=== PATIENT | male | born 1995 | race Caucasian/White ===

== ENCOUNTER 2018-02-15 19:32 | Emergency (ER) | payer OTHER ==
[~2018-02-15] VITALS: Ht 198.1 cm; Wt 132.9 kg
[2018-02-15 19:47] VITALS: BP 196/139; Ht 198.1 cm; Wt 132.9 kg
== END 2018-02-15 20:24 | disposition left against medical advice (07) ==
LOC: ED 19:32
DX: Z53.21 Procedure and treatment not carried out due to patient leaving prior to being seen by health care provider (principal)

== ENCOUNTER 2018-02-18 06:27 | Emergency (ER) | payer OTHER ==
[~2018-02-18] VITALS: Ht 198.1 cm; Wt 137.7 kg
[2018-02-18 06:31] VITALS: Ht 198.1 cm; Wt 137.7 kg
[2018-02-18 07:16] LABS: microscopic required? NO
[2018-02-18 08:05] VITALS: BP 145/81
[2018-02-18 08:09] LABS: UA SPECIFIC GRAVITY >=1.030 (1.005-1.035); urine erythrocyte NEGATIVE (NEGATIVE)
== END 2018-02-18 08:05 | disposition home or self-care (01) ==
LOC: ED 06:27
PROVIDERS: Specialist
DX: Z11.3 Encounter for screening for infections with a predominantly sexual mode of transmission (principal)
CPT/HCPCS: 87491; 87591; J0696

== ENCOUNTER 2018-04-17 04:16 | Emergency (ER) | payer OTHER ==
[~2018-04-17] VITALS: Ht 198.1 cm; Wt 139.7 kg
[2018-04-17 04:24] VITALS: Ht 198.1 cm; Wt 139.7 kg
[2018-04-17 05:42] VITALS: BP 128/73
== END 2018-04-17 05:42 | disposition home or self-care (01) ==
LOC: ED 04:16
DX: L73.9 Follicular disorder, unspecified (principal); K13.79 Other lesions of oral mucosa; F90.9 Attention-deficit hyperactivity disorder, unspecified type; F43.10 Post-traumatic stress disorder, unspecified

== ENCOUNTER 2020-06-21 17:43 | Emergency (ER) | payer OTHER ==
[~2020-06-21] VITALS: Ht 198.1 cm; Wt 157.9 kg
[2020-06-21 21:29] VITALS: BP 141/80; Ht 198.1 cm; Wt 157.9 kg
== END 2020-06-21 22:54 | disposition home or self-care (01) ==
LOC: ED 17:43
DX: T15.01XA Foreign body in cornea, right eye, initial encounter (principal); W45.8XXA Other foreign body or object entering through skin, initial encounter; Y93.89 Activity, other specified; Y92.89 Other specified places as the place of occurrence of the external cause; Y99.8 Other external cause status